=== PATIENT | male | born 1970 | race Caucasian/White ===

== ENCOUNTER 2017-02-09 12:44 | Emergency (ER) | payer BC ==
[~2017-02-09] VITALS: Ht 185.4 cm; Wt 101.4 kg
[2017-02-09 12:46] VITALS: BP 146/90; TEMP 97.7
[2017-02-09] MEDS ORDERED: TOPROL XL 25MG25 MG PO (12:49)
[2017-02-09] MEDS ORDERED: PREVACID 30MG30 M1 PO (13:01)
[2017-02-09] MEDS ORDERED: XANAX .25M0.25 MG/TA PO (13:02)
[2017-02-09] MEDS ORDERED: ZOFRAN ODT4 MG PO (13:38)
[2017-02-09 13:53] VITALS: PULSE 86
== END 2017-02-09 13:52 | disposition home or self-care (01) ==
LOC: COL.ER 12:44
DX: S00.03XA Contusion of scalp, initial encounter (principal); W01.10XA Fall on same level from slipping, tripping and stumbling with subsequent striking against unspecified object, initial encounter; Y92.410 Unspecified street and highway as the place of occurrence of the external cause

== ENCOUNTER 2020-05-12 10:22 | Emergency (ER) | payer SELFPAY ==
[~2020-05-12] VITALS: Ht 185.4 cm; Wt 104.5 kg
[~2020-05-12 10:22] MED LIST: PREVACID 30MG30 M1 PO; TOPROL XL 25MG25 MG PO; XANAX .25M0.25 MG/TA PO; ZOFRAN ODT4 MG PO
[2020-05-12 10:25] VITALS: TEMP 98.1
[2020-05-12 10:44] LABS: BASO % 0.4 % (0.0-2.0); EOS # 0.2 (0.0-0.7); EOS % 1.7 % (0-4.0); GRAN # 7.1 (1.4-6.5); GRAN % 75.5 % (42.2-75.2); HEMATOCRIT 43.8 % (42.0-52.0); HEMOGLOBIN 14.6 g/dl (13.5-18.0); LYMPH # 1.4 (1.2-3.4); LYMPH % 14.9 % (20.0-51.0); MEAN CELL VOLUME 85 fl (80.0-100.0); MEAN CORPUSCULAR HEMOGLOBIN 28 pg (27.0-31.0); MEAN CORPUSCULAR HGB CONC 33 g/dl (33.0-37.0); MEAN PLATELET VOLUME 9.2 fl (7.4-10.4); MONO # 0.7 (0.1-0.6); MONO % 6.9 % (1.7-9.3); PLATELET COUNT 169 K/mm3 (130-400); RED BLOOD COUNT 5.15 M/mm3 (4.20-5.60); REDCELL DISTRIBUTION WIDTH-CV 13.6 % (11.5-14.5)
[2020-05-12 10:50] LABS: PROTHROMBIN TIME 11.5 SECONDS (9.7-12.8)
[2020-05-12 10:51] LABS: ALANINE AMINOTRANSFERASE 20 U/L (4-49); ALBUMIN 4.4 gm/dL (3.5-5.0); ALKALINE PHOSPHATASE 40 U/L (50-136); ANION GAP 10 mmol/L (7-16); AST,SGOT 22 U/L (15-37); BILIRUBIN,TOTAL 0.8 mg/dL (0.0-1.0); BLOOD UREA NITROGEN 24 mg/dL (9-20); CALCIUM 9.1 mg/dL (8.4-10.2); CARBON DIOXIDE 26 mmol/L (22-30); CHLORIDE 101 mmol/L (98-107); CREATININE, serum 1.03 (0.66-1.25); GLUCOSE 97 mg/dL (74-106); LIPASE 93 U/L (23-300); POTASSIUM 3.8 mmol/L (3.4-5.0); SODIUM 137 mmol/L (137-145); TOTAL PROTEIN 7.1 gm/dL (6.4-8.2)
[2020-05-12 10:53] LABS: PARTIAL THROMBOPLASTIN TIME 29.6 SECONDS (26.0-37.0)
[2020-05-12 11:05] LABS: TROPONIN-I < 0.012 ng/mL (0.000-0.035)
[2020-05-12] MEDS ORDERED: TYLENOL 325MG325 MG PO (13:35)
[2020-05-12] MEDS ORDERED: ROBAXIN 50500 MG/TAB PO (13:35)
[2020-05-12 13:45] VITALS: BP 152/90; PULSE 69
== END 2020-05-12 13:45 | disposition home or self-care (01) ==
LOC: COL.ER 10:22
PROVIDERS: Emergency Medicine
DX: R07.89 Other chest pain (principal); I10 Essential (primary) hypertension; F41.9 Anxiety disorder, unspecified

== ENCOUNTER → 2021-08-31 | Outpatient (CLI) | payer BC ==
[~2021-08-31] VITALS: Ht 185.4 cm; Wt 111.6 kg
[~2021-08-31] MED LIST changes: +COZAAR 50MG50 MG/TAB PO; +FENOFIBRATE30 MG PO; +ROBAXIN 50500 MG/TAB PO; +TRICOR145 MG PO; +TYLENOL 325MG325 MG PO; +XANAX 0.5MG0.5 MG PO
[2021-08-31 06:52] VITALS: BP 151/95; PULSE 76; TEMP 98.2
[2021-08-31 07:55] VITALS: BP 149/91; PULSE 73
[2021-08-31 08:10] VITALS: BP 132/90; PULSE 78
== END ==
LOC: COL.RAD 06:21
DX: R59.0 Localized enlarged lymph nodes (principal); M79.9 Soft tissue disorder, unspecified

== ENCOUNTER → 2021-09-18 | Outpatient (CLI) | payer BC | LOC: COL.VAS 12:30 | DX: Z51.11 Encounter for antineoplastic chemotherapy (principal); I08.1 Rheumatic disorders of both mitral and tricuspid valves ==

== ENCOUNTER → 2021-10-10 | Outpatient (CLI) | payer BC | LOC: MHCPAIN 09:40 | DX: M47.816 Spondylosis without myelopathy or radiculopathy, lumbar region (principal); M79.604 Pain in right leg; G56.01 Carpal tunnel syndrome, right upper limb; R20.2 Paresthesia of skin | CPT/HCPCS: G0463 ==

== ENCOUNTER → 2021-10-10 | Outpatient (CLI) | payer BC | LOC: COL.RAD 11:38 | DX: M47.816 Spondylosis without myelopathy or radiculopathy, lumbar region (principal); M16.0 Bilateral primary osteoarthritis of hip ==

== ENCOUNTER → 2021-10-25 | Outpatient (CLI) | payer BC | LOC: MHCPAIN 10:41 | DX: M16.11 Unilateral primary osteoarthritis, right hip (principal); M25.551 Pain in right hip | CPT/HCPCS: J3301; Q9967 ==

== ENCOUNTER → 2022-03-13 | Outpatient (CLI) | payer BC ==
[~2022-03-13] MED LIST changes: +AMOXICILLIN 8751 TAB PO; +PERCOCET 325 MG1 TA2 PO
== END ==
LOC: MHCPAIN 10:09
DX: M53.3 Sacrococcygeal disorders, not elsewhere classified (principal); M16.11 Unilateral primary osteoarthritis, right hip; R20.2 Paresthesia of skin; G56.01 Carpal tunnel syndrome, right upper limb
CPT/HCPCS: G0463

== ENCOUNTER → 2022-03-18 | Outpatient (CLI) | payer BC | LOC: MHCPAIN 14:17 | DX: M53.3 Sacrococcygeal disorders, not elsewhere classified (principal); M47.817 Spondylosis without myelopathy or radiculopathy, lumbosacral region | CPT/HCPCS: J1040; J3301; Q9967 ==

== ENCOUNTER → 2022-04-09 | Outpatient (CLI) | payer BC | LOC: MHCPAIN 14:27 | DX: M16.11 Unilateral primary osteoarthritis, right hip (principal); M53.3 Sacrococcygeal disorders, not elsewhere classified; M25.551 Pain in right hip | CPT/HCPCS: G0463 ==

== ENCOUNTER → 2022-05-02 | Outpatient (CLI) | payer BC | LOC: MHCPAIN 14:48 | DX: M16.11 Unilateral primary osteoarthritis, right hip (principal); M79.18 Myalgia, other site; M25.551 Pain in right hip | CPT/HCPCS: J3301; Q9967 ==

== ENCOUNTER → 2022-05-28 | Outpatient (CLI) | payer BC | LOC: MHCPAIN 15:07 | DX: M16.11 Unilateral primary osteoarthritis, right hip (principal); M53.3 Sacrococcygeal disorders, not elsewhere classified; M54.31 Sciatica, right side; M79.18 Myalgia, other site | CPT/HCPCS: G0463 ==